=== PATIENT | female | born 1945 | race Caucasian/White ===

== ENCOUNTER 2017-06-08 05:42 | Day surgery (SDC) | payer OTHER ==
[2017-06-08] MEDS ORDERED: LACTATED RINGERS 1,000 ML ONE (07:21)
[2017-06-08] MEDS ORDERED: fentaNYL CITRATE INJ 50 MCG/ML AMP ONE (08:25)
[2017-06-08] MEDS ORDERED: LIDOCAINE 1% 10 ML VIAL INJ ONE (10:00)
[2017-06-08] MEDS ORDERED: PROPOFOL 200 MG/20 ML VIAL IV ONE (10:00)
--- NOTE | 2017-06-08 10:15 | OP ---
DATE OF PROCEDURE: 06/08/17 PREPROCEDURE DIAGNOSIS: 1. Abdominal pain. 2. Weight loss. 3. Change in bowel pattern. POSTPROCEDURE DIAGNOSIS: 1. Healing duodenal ulcer. 2. Erythematous duodenopathy. 3. Erythematous gastropathy. 4. Colonic polyps. 5. Large internal hemorrhoids. 6. Diverticulosis. PROCEDURE: 1. Esophagogastroduodenoscopy. 2. Colonoscopy. SURGEON: River Manzo MD SEDATION: The patient was sedated via IV propofol by the Anesthesia Department. CONSENT: Prior to the procedure, risks, benefits and alternatives to the therapy were discussed with the patient. The risks included bleeding, infection , perforation and . The patient agreed to the procedure and signed a consent. PREPROCEDURE ANESTHESIA ASSESSMENT: An examination revealed no contraindication to sedation. Airway demonstrated a Mallampati class type 2, ASA grade assessment type 2. Throughout the procedure, the patient's blood pressure, pulse and oxygen saturation were monitored continuously. PROCEDURE: The patient was placed in the left lateral decubitus position. Bite block was placed in the mouth between the teeth. The Olympus endoscope was introduced through the oropharynx, esophagus, stomach and the second portion of the duodenum. The scope was retracted and the mucosa visualized. The entirety of the exam was performed under direct visualization. Retroflexion was performed in the stomach. The patient tolerated the procedure well. FINDINGS: 1. The esophagus was entirely normal. 2. Diffuse erythema was seen in the gastric antrum. Mild congestion of the prepyloric mucosa was seen suggestive of healing erosive gastropathy or gastric ulceration. 3. Erythematous duodenopathy characterized by mild to moderate diffuse erythema in the duodenum. Two healing ulcers were seen in the duodenal bulb and first portion of the duodenum. Random biopsies were taken from the gastric mucosa to rule out H. pylori. 4. Otherwise, normal examination. The patient was placed in the left lateral decubitus position and a rectal examination was performed. The rectal examination was within normal limits. The Olympus colonoscope was passed in the anus, rectum, traversing the colon to the level of the cecum as identified by the appendiceal orifice. The scope was retracted and the mucosa was visualized. The entirety of the exam was performed with direct visualization. Retroflexion was performed in the rectum. Preparation quality was good. The withdrawal time was greater than 6 minutes. The patient tolerated the procedure well. FINDINGS: 1. Scattered diverticula were seen throughout the colon, predominantly in the left side in the descending and sigmoid colon. 2. A 12 mm pedunculated polyp was seen in the rectum. This was resected with a hot snare, completely removed and retrieved. 3. Large internal hemorrhoids. RECOMMENDATION: 1. Return the patient home. 2. Resume previous diet. 3. Increase omeprazole to 40 mg twice daily. May continue sucralfate q.6h. p.r.n. pain. 4. Avoid NSAIDs. 5. Followup pathology results. 6. Return to my clinic in 1 to 2 weeks to followup with results and symptoms. #[id number] [facility]
[2017-06-09 09:09] VITALS: BP 145/68; TEMP 98.6; O2SAT 96
== END 2017-06-08 09:55 | disposition home or self-care (01) ==
LOC: AMB 05:42
PROVIDERS: ATTEND Internal Medicine Gastroenterology
DX: D12.5 Benign neoplasm of sigmoid colon (principal); K57.30 Diverticulosis of large intestine without perforation or abscess without bleeding; K64.8 Other hemorrhoids; K29.70 Gastritis, unspecified, without bleeding; K26.9 Duodenal ulcer, unspecified as acute or chronic, without hemorrhage or perforation; R63.4 Abnormal weight loss; K31.89 Other diseases of stomach and duodenum; R19.4 Change in bowel habit; I10 Essential (primary) hypertension; E11.9 Type 2 diabetes mellitus without complications; K21.9 Gastro-esophageal reflux disease without esophagitis; Z80.0 Family history of malignant neoplasm of digestive organs; Z79.899 Other long term (current) drug therapy